=== PATIENT | male | born 1975 | race Caucasian/White ===

== ENCOUNTER → 2018-11-10 | Outpatient (REF) | payer SELFPAY ==
[~2018-11-10] MED LIST: AUG500 PO; AZIT-1 PO; BACDS PO; IBU800 PO; LEV500 PO; LOR5 PO; OMEP-114 PO; OND4 PO; PER PO
== END ==
LOC: ZZPBJ 12:36
PROVIDERS: ATTEND Orthopaedic Surgery
DX: S81.802A Unspecified open wound, left lower leg, initial encounter (principal); A49.01 Methicillin susceptible Staphylococcus aureus infection, unspecified site
CPT/HCPCS: 87070; 87073; 87077; 87186